=== PATIENT | female | born 1965 | race Caucasian/White ===

== ENCOUNTER → 2016-07-29 | Outpatient (CLI) | payer MEDICARE, OTHER ==
--- NOTE | 2016-07-29 16:23 | RADIOLOGY REPORT (SQ) ---
EXAM DESCRIPTION: CT FACIAL AREA WITHOUT COMPLETED DATE/TIME: 07/29/2016 2:44 pm REASON FOR STUDY: CONTUSION OF RIGHT EYELID S00.11XA CONTUSION OF RIGHT EYELID AND PERIOCULAR AREA, INIT COMPARISON: None. TECHNIQUE: Noncontrasted images through the facial bones and orbits windowed for bone and soft tissu e. Additional coronal and sagittal reconstructed images reviewed. All images stored on PACS. All CT scanners at this facility use dose modulation, iterative reconstruction, and/or weight based d osing when appropriate to reduce radiation dose to as low as reasonably achievable (ALARA). [facility]: Dose Right [facility]: CareDose [facility]: Dose Right [facility]: Teradose 4D [facility]: [employer] RADIATION DOSE: 45.28 mGy. LIMITATIONS: None. FINDINGS: FACIAL BONES: No fracture or bone lesion. ORBITS: Intact. No fracture. Symmetric intact globes and retroorbital soft tissues. Punctate calci fication along the left globe retinal surface axial image 49 of uncertain clinical significance. PARANASAL SINUSES: Clear. No significant mucosal thickening, mass or fluid. No nasal polyps. Maxill ric sinus outlets are patent. SOFT TISSUES: No mass or edema. INFERIOR BRAIN: Limited view. No acute findings. OTHER: Borderline enlarged right jugulodigastric lymph node axial image 14 of doubtful clinical signi ficance. IMPRESSION: NO ACUTE FINDINGS. TECHNICAL DOCUMENTATION: JOB ID: [id number] Quality ID # [id number]: Final reports with documentation of one or more dose reduction techniques (e.g., Au tomated exposure control, adjustment of the mA and/or kV according to patient size, use of iterative reconstruction technique) 2010 [employer]- All Rights Reserved
== END ==
LOC: RAD 14:26
PROVIDERS: ATTEND Physician Assistant
DX: S00.11XA Contusion of right eyelid and periocular area, initial encounter (principal); X58.XXXA Exposure to other specified factors, initial encounter
CPT/HCPCS: 70486

== ENCOUNTER 2016-12-07 19:28 | Inpatient (IN) | payer MEDICARE, OTHER ==
--- NOTE | 2016-12-07 19:57 | ER Document Report ---
ED Medical Screen (RME) - General Chief Complaint: Abdominal Cramping Stated Complaint: POSSIBLE BLOOD IN URINE Time Seen by Provider: 12/07/16 19:56 Notes: Patient presents with flank pain as well as suprapubic and lower pelvic pain. She states this pain is been going on for several weeks now she is starting to notice blood in her urine. She states her urine also has a foul odor. TRAVEL OUTSIDE OF THE [place] IN LAST 30 DAYS: No - Related Data Allergies/Adverse Reactions: fexofenadine HCl [From [facility]] Allergy (Verified 12/07/16 19:32) Past Medical History - Past Medical History Cardiac Medical History: Reports: Hx Hypercholesterolemia Renal/ Medical History: Reports: Hx Kidney Stones. Denies: Hx Peritoneal Dialysis - Immunizations Immunizations up to date: Yes Hx Diphtheria, Pertussis, Tetanus Vaccination: Yes Physical Exam - Vital signs Vitals: Temp Pulse Resp BP Pulse Ox 98.9 F 98 18 144/88 H 96 12/07/16 19:34 12/07/16 19:34 12/07/16 19:34 12/07/16 19:34 12/07/16 19:34 Course - Vital Signs Vital signs: Temp Pulse Resp BP Pulse Ox 98.9 F 98 18 144/88 H 96 12/07/16 19:34 12/07/16 19:34 12/07/16 19:34 12/07/16 19:34 12/07/16 19:34 - Laboratory Laboratory results interpreted by me: 12/07/16 19:37 POC Glucose 185 H
[2016-12-07 20:45] LABS: ABSOLUTE BASOPHILS # (AUTO) 0.1 10^3/uL (0.0-0.2); ABSOLUTE EOSINOPHILS # (AUTO) 0.1 10^3/uL (0.0-0.6); ABSOLUTE LYMPHOCYTES (AUTO) 3.2 10^3/uL (0.5-4.7); ABSOLUTE MONOCYTES (AUTO) 0.7 10^3/uL (0.1-1.4); ABSOLUTE NEUT (AUTO) 6.8 10^3/uL (1.7-8.2); BASOPHILS % (AUTO) 0.5 % (0-2); EOSINOPHILS % (AUTO) 1.3 % (0-6); HEMATOCRIT 42.4 % (36.0-47.0); HEMOGLOBIN 14.4 g/dL (12.0-15.5); HGB HCT DIFFERENCE 0.8; LYMPHOCYTES % (AUTO) 29.2 % (13-45); MEAN CORPUSCULAR VOLUME 85 fl (80-97); MONOCYTES % (AUTO) 6.4 % (3-13); RED BLOOD COUNT 4.96 10^6/uL (3.72-5.28); RED CELL DISTRIBUTION WIDTH 13.4 % (11.5-14.0); SEGMENTED NEUTROPHILS % (AUTO) 62.6 % (42-78); WHITE BLOOD COUNT 10.9 10^3/uL (4.0-10.5)
[2016-12-07 20:51] LABS: AMORPHOUS SEDIMENT,URINE TRACE /HPF; APPEARANCE,URINE TURBID; BILIRUBIN,URINE NEGATIVE (NEGATIVE); GLUCOSE, URINE 50 mg/dL (NEGATIVE); KETONES,URINE NEGATIVE (NEGATIVE); LEUKOCYTE ESTERASE,URINE NEGATIVE (NEGATIVE); NITRITE,URINE NEGATIVE (NEGATIVE); PROTEIN,URINE >=500 mg/dL (NEGATIVE); URINE SPECIFIC GRAVITY 1.031; UROBILINOGEN,URINE NEGATIVE mg/dL (<2.0)
[2016-12-07 20:59] LABS: ALANINE AMINOTRANSFERASE 41 U/L (9-52); ALBUMIN 4.2 g/dL (3.5-5.0); ALKALINE PHOSPHATASE 90 U/L (38-126); ANION GAP 13 (5-19); ASPARTATE AMINO TRANSFERASE 29 U/L (14-36); BILIRUBIN,DIRECT 0.4 mg/dL (0.0-0.4); BILIRUBIN,TOTAL 0.4 mg/dL (0.2-1.3); BLOOD UREA NITROGEN 21 mg/dL (7-20); CALCIUM 9.8 mg/dL (8.4-10.2); CARBON DIOXIDE 24 mmol/L (22-30); CHLORIDE 106 mmol/L (98-107); CREATININE RESULT 1.08 mg/dL (0.52-1.25); GLUCOSE 223 mg/dL (75-110); POTASSIUM 3.9 mmol/L (3.6-5.0); SODIUM 143.2 mmol/L (137-145)
--- NOTE | 2016-12-07 21:25 | RADIOLOGY REPORT (SQ) ---
EXAM DESCRIPTION: CT ABD/PELVIS NO ORAL OR IV COMPLETED DATE/TIME: 12/07/2016 8:33 pm REASON FOR STUDY: flank pain/hx stones COMPARISON: None. TECHNIQUE: CT scan of the abdomen and pelvis performed without intravenous or oral contrast. Images reviewed with lung, soft tissue, and bone windows. Reconstructed coronal and sagittal MPR images revi ewed. All images stored on PACS. All CT scanners at this facility use dose modulation, iterative reconstruction, and/or weight based d osing when appropriate to reduce radiation dose to as low as reasonably achievable (ALARA). [facility]: Dose Right [facility]: CareDose [facility]: Dose Right [facility]: Teradose 4D [facility]: Smart [employer] RADIATION DOSE: Up-to-date CT equipment and radiation dose reduction techniques were employed. CTDIv ol: 26.0 mGy. DLP: 1426 mGy-cm.mGy. LIMITATIONS: None. FINDINGS: LOWER CHEST: No significant findings. No nodules or infiltrates. NON-CONTRASTED LIVER, SPLEEN, ADRENALS: Evaluation limited by lack of IV contrast. Diffuse fatty inf iltration of the liver. No identified significant masses. PANCREAS: No masses. No peripancreatic inflammatory changes. GALLBLADDER: No identified stones by CT criteria. No inflammatory changes to suggest cholecystitis. RIGHT KIDNEY AND URETER: No suspicious masses. Assessment limited by lack of IV contrast. 7 mm calc ified stone in the distal right ureter with mild -moderate hydronephrosis-hydroureter. LEFT KIDNEY AND URETER: No suspicious masses. Assessment limited by lack of IV contrast. No signifi cant calcifications. No hydronephrosis or hydroureter. AORTA AND RETROPERITONEUM: No aneurysm. No retroperitoneal masses or adenopathy. BOWEL AND PERITONEAL CAVITY: No obvious masses or inflammatory changes. No free fluid. APPENDIX: Normal. PELVIS, BLADDER, AND ABDOMINAL WALL:No abnormal masses. No free fluid. Bladder normal. BONES: No significant findings. OTHER: No other significant finding. IMPRESSION: 7 mm calcified stone in the distal right ureter with mild -moderate hydronephrosis-hydro ureter. COMMENT: Quality ID # [id number]: Final reports with documentation of one or more dose reduction techniques (e.g., Automated exposure control, adjustment of the mA and/or kV according to patient size, use of iterative reconstruction technique) TECHNICAL DOCUMENTATION: JOB ID: [id number]- All Rights Reserved
[2016-12-07] MEDS ORDERED: NORMAL SALINE 1000 ML 1,000 ML IV ONE (22:25)
[2016-12-07] MEDS ORDERED: CEFTRIAXONE INJ 1000 MG VIAL IV ONE (22:25)
[2016-12-07] MEDS ORDERED: ONDANSETRON HCL INJ/PF 4 MG/2 ML SDV IV ONE (22:36)
[2016-12-07] MEDS ORDERED: MORPHINE SULFATE 10 MG/ML INJ IV ONE (22:36)
--- NOTE | 2016-12-07 22:44 | ER Document Report ---
ED General - General Chief Complaint: Abdominal Cramping Stated Complaint: POSSIBLE BLOOD IN URINE Time Seen by Provider: 12/07/16 19:56 Notes: Patient is a 51-year-old female with a previous history of kidney stones presents with complaint of a lot of pain in her right flank that goes across her lower abdomen as well as some vomiting. Patient said the symptoms started today. She says several days ago she noticed some dark urine and foul-smelling urine. She went to her doctor told her that she has some blood in her urine and that they would retest it later. She also has some sugar in her urine as well. She has no history of diabetes. She has passed her previous stones. She has never had see a urologist. She had some subjective fever at home. No other complaints at this time. TRAVEL OUTSIDE OF THE [place] IN LAST 30 DAYS: No - Related Data Allergies/Adverse Reactions: fexofenadine HCl [From [employer]] Allergy (Verified 12/07/16 19:32) Past Medical History - Social History Smoking Status: Former Smoker Frequency of alcohol use: None Drug Abuse: None Family History: None Patient has suicidal ideation: No Patient has homicidal ideation: No - Past Medical History Cardiac Medical History: Reports: Hx Hypercholesterolemia Renal/ Medical History: Reports: Hx Kidney Stones. Denies: Hx Peritoneal Dialysis - Immunizations Immunizations up to date: Yes Hx Diphtheria, Pertussis, Tetanus Vaccination: Yes Review of Systems - Review of Systems Notes: My Normal Review Basic REVIEW OF SYSTEMS: CONSTITUTIONAL : Denies fever, chills, or sweats. Denies recent illness. EENT: Denies eye, ear, throat, or mouth pain or symptoms. Denies nasal or sinus congestion. CARDIOVASCULAR: Denies chest pain. RESPIRATORY: Denies cough, cold, or chest congestion. Denies shortness of breath, difficulty breathing, or wheezing. GASTROINTESTINAL: Flank pain. Lower abdominal pain. Some vomiting. GENITOURINARY: Foul-smelling urine. Blood in urine. FEMALE GENITOURINARY: Denies vaginal bleeding, abnormal or irregular periods. MUSCULOSKELETAL: Denies neck or back pain or joint pain or swelling. SKIN: Denies rash or skin lesions. NEUROLOGICAL: Denies altered mental status or loss of consciousness. Denies headache. Denies weakness or paralysis or loss of use of either side. Denies problems with gait or speech. Denies sensory or motor loss. ALL OTHER SYSTEMS REVIEWED AND NEGATIVE. Physical Exam - Vital signs Vitals: Temp Pulse Resp BP Pulse Ox 98.9 F 98 18 144/88 H 96 12/07/16 19:34 12/07/16 19:34 12/07/16 19:34 12/07/16 19:34 12/07/16 19:34 - Notes Notes: General Appearance: Well nourished, alert, cooperative, no acute distress, alert obvious discomfort. Vitals: reviewed, See vital signs table. Head: no swelling or tenderness to the head Eyes: PERRL, EOMI, Conjuctiva clear Mouth: No decreasd moisture Lungs: No wheezing, No rales, No rhonci, No accessory muscle use, good air exchange bilaterally. Heart: Normal rate, Regular rythm, No murmur, no rub Abdomen: Normal BS, soft, No rigidity, lower abdominal tenderness palpation, No guarding, no rebound, no abdominal masses, no organomegaly Extremities: strength 5/5 in all extremities, good pulses in all extremities, no swelling or tenderness in the extremities, no edema. Skin: warm, dry, appropriate color, no rash Neuro: speech clear, oriented x 3, normal affect, responds appropriately to questions. Course - Re-evaluation Re-evalutation: 12/07/16 22:[address] Jaramillo, urologist on-call, who says that he wants to keep the patient n.p.o. and agrees with the Rocephin and urine culture. He says he will see the patient in the morning and most likely consider stenting the patient. I did speak with the hospitalist, Dr. Macias, who agrees to admit the patient. Patient is agreeable to plan. Dictation of this chart was performed using voice recognition software; therefore, there may be some unintended grammatical errors. - Vital Signs Vital signs: Temp Pulse Resp BP Pulse Ox 98.9 F 98 18 144/88 H 96 12/07/16 19:34 12/07/16 19:34 12/07/16 19:34 12/07/16 19:34 12/07/16 19:34 - Laboratory Result Diagrams: 12/07/16 19:55 12/07/16 19:55 Laboratory results interpreted by me: 12/07/16 12/07/16 12/07/16 19:37 19:55 19:55 WBC 10.9 H BUN 21 H Est GFR (Non-Af Amer) 54 L Glucose 223 H POC Glucose 185 H Urine Protein Urine Glucose (UA) Urine Blood 12/07/16 19:55 WBC BUN Est GFR (Non-Af Amer) Glucose POC Glucose Urine Protein >=500 H Urine Glucose (UA) 50 H Urine Blood LARGE H Discharge - Discharge Clinical Impression: Kidney stone on right side UTI (urinary tract infection) Qualifiers: Urinary tract infection type: site unspecified Hematuria presence: with hematuria Qualified Code(s): N39.0 - Urinary tract infection, site not specified Condition: Stable Disposition: ADMITTED INPATIENT Admitting Provider: Hospitalist Unit Admitted: Telemetry
[2016-12-07] MEDS ORDERED: HYDROCODONE/ACETAMINOPHEN 5-325 MG TABLET PO PRN (23:10)
[2016-12-07] MEDS ORDERED: ONDANSETRON HCL INJ/PF 4 MG/2 ML SDV IV PRN (23:11)
[2016-12-07] MEDS ORDERED: IPRATROPIUM/ALBUTEROL 0.5-2.5 MG/3 ML AMPUL NEB PRN (23:11)
[2016-12-07] MEDS ORDERED: NORMAL SALINE 1000 ML 1,000 ML IV SCH (23:15)
[2016-12-07] MEDS ORDERED: METHOCARBAMOL 750 MG TABLET PO ONE ×2 (23:30→23:45)
[2016-12-08] MEDS ORDERED: DEXTROSE 50%-WATER 25 GM/50 ML DISP.SYRIN IV PRN ×2 (00:14)
[2016-12-08] MEDS ORDERED: GLUCAGON,HUMAN RECOMB 1 MG INJ IM PRN (00:14)
[2016-12-08] MEDS ORDERED: INSULIN REG, HUMAN 100 UNIT/ML 3 ML VIAL (PYX) SUBCUT PRN (00:14)
[2016-12-08] MEDS ORDERED: DEXTROSE 40% GEL 15 GM TUBE PO PRN ×2 (00:14)
[2016-12-08] MEDS ORDERED: METHOCARBAMOL 750 MG TABLET PO ONE (01:30)
[2016-12-08] MEDS ORDERED: INFLUENZA ADLT QUAD (36MOS+) 2017-18 VAC 0.5 ML SYR IM PRN (04:22)
[2016-12-08] MEDS ORDERED: METHOCARBAMOL 750 MG TABLET ONE (05:20)
[2016-12-08] MEDS: HEPARIN SOD (PORCINE) 5,000 UNIT/ML 1 ML SYRINGE SUBCUT SCH ×3 (05:23→21:15)
[2016-12-08] MEDS ORDERED: KETOROLAC TROMETHAMINE INJ/PF 30 MG/1 ML SDV IV PRN (05:26)
[2016-12-08] MEDS: METHOCARBAMOL 750 MG TABLET PO SCH ×3 (05:36→21:19)
[2016-12-08 09:05] LABS: HEMATOCRIT 37.3 % (36.0-47.0); HEMOGLOBIN 12.5 g/dL (12.0-15.5); HGB HCT DIFFERENCE 0.2; MEAN CORPUSCULAR HEMOGLOBIN 28.5 pg (27.0-33.4); MEAN CORPUSCULAR HGB CONC 33.4 g/dL (32.0-36.0); MEAN CORPUSCULAR VOLUME 85 fl (80-97); RED BLOOD COUNT 4.37 10^6/uL (3.72-5.28); RED CELL DISTRIBUTION WIDTH 13.1 % (11.5-14.0); WHITE BLOOD COUNT 6.7 10^3/uL (4.0-10.5)
[2016-12-08 09:24] LABS: ANION GAP 12 (5-19); BLOOD UREA NITROGEN 16 mg/dL (7-20); CALCIUM 8.5 mg/dL (8.4-10.2); CARBON DIOXIDE 22 mmol/L (22-30); CHLORIDE 110 mmol/L (98-107); CREATININE RESULT 0.75 mg/dL (0.52-1.25); GLUCOSE 147 mg/dL (75-110); POTASSIUM 4.3 mmol/L (3.6-5.0); SODIUM 143.5 mmol/L (137-145)
[2016-12-08] MEDS: CEFTRIAXONE 1 GM/D5W RTU 1 GM/50 ML RTUPB IV SCH (09:40)
[2016-12-08] MEDS: DOCUSATE SODIUM 100 MG CAPSULE PO SCH ×2 (09:44→15:07)
[2016-12-08] MEDS ORDERED: FENTANYL CITRATE INJ/PF 100 MCG/2 ML AMPUL ONE (11:54)
[2016-12-08] MEDS ORDERED: PROPOFOL INJ 200 MG/20 ML VIAL IV ONE (11:55)
[2016-12-08] MEDS ORDERED: MIDAZOLAM 2 MG/2 ML INJ ONE (11:55)
[2016-12-08] MEDS ORDERED: ONDANSETRON HCL INJ/PF 4 MG/2 ML SDV ONE (11:55)
[2016-12-08] MEDS ORDERED: DEXAMETHASONE SOD PHOSPHATE INJ 4 MG/1 ML VIAL ONE (11:55)
[2016-12-08] MEDS ORDERED: MEPERIDINE HCL/PF INJ 25 MG/1 ML DISP.SYRIN IV PRN (12:55)
[2016-12-08] MEDS ORDERED: PROMETHAZINE HCL INJ 25 MG/1 ML VIAL IV PRN (12:55)
[2016-12-08] MEDS ORDERED: DIPHENHYDRAMINE HCL 50 MG/ML VIAL IV PRN (12:55)
[2016-12-08] MEDS ORDERED: FENTANYL CITRATE INJ/PF 100 MCG/2 ML AMPUL IV PRN ×3 (12:55)
[2016-12-08] MEDS ORDERED: ONDANSETRON HCL INJ/PF 4 MG/2 ML SDV IV PRN (12:55)
--- NOTE | 2016-12-08 13:11 | Operative Report ---
Operative Report DATE OF SURGERY: 12/08/16 PREOPERATIVE DIAGNOSIS: 1. Distal right ureteral stone with obstruction. 2. Urinary tract infection POSTOPERATIVE DIAGNOSIS: Same OPERATION: Cystoscopy, placement of right ureteral stent SURGEON: LIO SAAVEDRA II ANESTHESIA: LMAC TISSUE REMOVED OR ALTERED: None ESTIMATED BLOOD LOSS: minimal INTRAOPERATIVE FINDINGS: Distal right ureteral stone PROCEDURE: The patient was taken to the cystoscopy suite and placed into the supine position on the cystoscopy table. She was then prepped and draped in the usual sterile fashion and placed into the lithotomy position. The 23 [place] panendoscope sheath was then placed into the bladder under direct vision utilizing the 30 Foroblique lens. The right ureteral orifice was visualized. A 0.035 Glidewire was used to cannulate the right ureteral orifice and under fluoroscopic guidance the Glidewire was placed into the renal pelvis bypassing the distal stone. Utilizing the exchange technique, a 4.8 24 cm double-pigtail stent was placed and positioned under fluoroscopic guidance. The bladder was drained and the cystoscope removed. The patient tolerated the procedure well. She was returned to PACU in satisfactory condition.
[2016-12-08] MEDS ORDERED: NORMAL SALINE 1000 ML 1,000 ML IV PRN (13:29)
--- NOTE | 2016-12-08 14:01 | RADIOLOGY REPORT (SQ) ---
EXAM DESCRIPTION: NO CHG FLUORO; KUB/ABDOMEN (SINGLE VIEW) COMPLETED DATE/TIME: 12/08/2016 1:11 pm REASON FOR STUDY: RIGHT SIDED STENT PLACEMENT ASSISTED W/FLUORO IN OR COMPARISON: CT from yesterday. FLUOROSCOPY TIME: 1 minutes 2 images saved to PACS. TECHNIQUE: Intra-operative images acquired during surgical procedure to evaluate progress. NUMBER OF IMAGES: 2 LIMITATIONS: None. FINDINGS: Images reveal instrumentation of the right ureter. Retrograde wire advanced into the john on of the right renal pelvis. Please correlate with operative note. IMPRESSION: IMAGE(S) OBTAINED DURING PROCEDURE. COMMENT: Quality ID [id number]: Final reports for procedures using fluoroscopy that document radiation exp osure indices, or exposure time and number of fluorographic images (if radiation exposure indices are not available) Please consult full operative report of the attending physician for description of the procedure. TECHNICAL DOCUMENTATION: JOB ID: [id number] [employer]- All Rights Reserved
--- NOTE | 2016-12-08 14:36 | PDOC PROGRESS REPORT ---
Subjective Progress Note for:: 12/08/16 Subjective:: Reports right flank pain. Physical Exam Vital Signs: Temp Pulse Resp BP Pulse Ox 98.0 F 73 16 122/65 96 12/08/16 13:25 12/08/16 13:25 12/08/16 13:25 12/08/16 13:25 12/08/16 13:25 Intake & Output 12/07/16 12/08/16 12/09/16 06:59 06:59 06:59 Intake Total 770 1000 Output Total 524 Balance 770 476 Weight 105.2 kg General appearance: PRESENT: no acute distress Eye exam: PRESENT: conjunctiva pink. ABSENT: scleral icterus Mouth exam: PRESENT: moist, tongue midline Neck exam: ABSENT: JVD Respiratory exam: PRESENT: clear to auscultation [place]. ABSENT: rales, rhonchi, wheezes Cardiovascular exam: PRESENT: RRR. ABSENT: diastolic murmur, rubs, systolic murmur GI/Abdominal exam: PRESENT: normal bowel sounds, soft. ABSENT: distended, guarding, mass, organolmegaly, rebound, tenderness Extremities exam: ABSENT: calf tenderness, clubbing, pedal edema Neurological exam: PRESENT: alert, awake, oriented to person, oriented to place , oriented to time, oriented to situation, CN II-XII grossly intact. ABSENT: motor sensory deficit Psychiatric exam: PRESENT: appropriate affect Skin exam: PRESENT: dry, intact, warm. ABSENT: cyanosis, rash Results Laboratory Results: 12/08/16 08:05 12/08/16 08:05 12/08/16 12/08/16 08:05 08:05 WBC 6.7 RBC 4.37 Hgb 12.5 Hct 37.3 MCV 85 MCH 28.5 MCHC 33.4 RDW 13.1 Plt Count 194 Sodium 143.5 Potassium 4.3 Chloride 110 H Carbon Dioxide 22 Anion Gap 12 BUN 16 Creatinine 0.75 Est GFR ( Amer) > 60 Est GFR (Non-Af Amer) > 60 Glucose 147 H Calcium 8.5 Impressions: Abdomen/Pelvis CT 12/07/16 19:56 IMPRESSION: 7 mm calcified stone in the distal right ureter with mild - moderate hydronephrosis-hydroureter. Fluoroscopy 12/08/16 00:00 IMPRESSION: IMAGE(S) OBTAINED DURING PROCEDURE. KUB X-Ray 12/08/16 00:00 IMPRESSION: IMAGE(S) OBTAINED DURING PROCEDURE. Assessment & Plan - Diagnosis (1) Kidney stone on right side Is this a current diagnosis for this admission?: Yes Plan: Patient has been evaluated by urology and will have a stent placed. (2) Pyelonephritis Is this a current diagnosis for this admission?: Yes Plan: Most likely is related to the nephrolithiasis. Continue with Rocephin. (3) Diabetes mellitus Is this a current diagnosis for this admission?: Yes Plan: This is a new diagnosis. Will cover with sliding scale insulin. (4) Morbid obesity Is this a current diagnosis for this admission?: Yes - Time Time Spent with patient: 25-34 minutes - Inpatient Certification Medical Necessity: Need For IV Fluids, Need for IV Antibiotics
[2016-12-08] MEDS ORDERED: PHENAZOPYRIDINE HCL 200 MG TABLET PO PRN (18:50)
[2016-12-09] MEDS: HEPARIN SOD (PORCINE) 5,000 UNIT/ML 1 ML SYRINGE SUBCUT SCH (05:30)
[2016-12-09] MEDS: METHOCARBAMOL 750 MG TABLET PO SCH (05:31)
[2016-12-09 06:33] LABS: ANION GAP 11 (5-19); BLOOD UREA NITROGEN 14 mg/dL (7-20); CALCIUM 8.6 mg/dL (8.4-10.2); CARBON DIOXIDE 22 mmol/L (22-30); CHLORIDE 111 mmol/L (98-107); CREATININE RESULT 0.72 mg/dL (0.52-1.25); GLUCOSE 175 mg/dL (75-110); POTASSIUM 4.5 mmol/L (3.6-5.0)
[2016-12-09 06:59] LABS: ABSOLUTE LYMPHOCYTES (AUTO) 2.4 10^3/uL (0.5-4.7); ABSOLUTE MONOCYTES (AUTO) 0.7 10^3/uL (0.1-1.4); ABSOLUTE NEUT (AUTO) 7.4 10^3/uL (1.7-8.2); BASOPHILS % (AUTO) 0.3 % (0-2); EOSINOPHILS % (AUTO) 0.1 % (0-6); HEMATOCRIT 35.7 % (36.0-47.0); HEMOGLOBIN 12.2 g/dL (12.0-15.5); HGB HCT DIFFERENCE 0.9; LYMPHOCYTES % (AUTO) 22.5 % (13-45); MEAN CORPUSCULAR HEMOGLOBIN 29.1 pg (27.0-33.4); MEAN CORPUSCULAR HGB CONC 34.4 g/dL (32.0-36.0); MEAN CORPUSCULAR VOLUME 85 fl (80-97); MONOCYTES % (AUTO) 6.3 % (3-13); SEGMENTED NEUTROPHILS % (AUTO) 70.8 % (42-78); WHITE BLOOD COUNT 10.5 10^3/uL (4.0-10.5)
[2016-12-09 08:39] VITALS: BP 120/67
[2016-12-09] MEDS: CEFTRIAXONE 1 GM/D5W RTU 1 GM/50 ML RTUPB IV SCH (10:12)
[2016-12-09] MEDS: DOCUSATE SODIUM 100 MG CAPSULE PO SCH (10:12)
--- NOTE | 2016-12-09 13:34 | PDOC DISCHARGE SUMMARY ---
General - Admit/Disc Date/PCP Admission Date/Primary Care Provider: 12/07/16 23:11 NOELLE URBINA PA-C Discharge Date: 12/09/16 - Discharge Diagnosis (1) Kidney stone on right side Is this a current diagnosis for this admission?: Yes Summary: Evaluated by urology who placed a right ureteral stent. (2) Pyelonephritis Is this a current diagnosis for this admission?: Yes Summary: Cultures have been negative. She has been put on Rocephin and will be sent home with Ceftin. (3) Diabetes mellitus Is this a current diagnosis for this admission?: Yes Summary: This is a new diagnosis. Patient is instructed to monitor her diet and exercise. (4) Morbid obesity Is this a current diagnosis for this admission?: Yes - Additional Information Resuscitation Status: Full Code Discharge Diet: Regular Discharge Activity: Activity As Tolerated Home Medications: Atorvastatin Calcium [Lipitor 10 mg Tablet] 10 mg PO QHS 12/08/16 Ergocalciferol (Vitamin D2) [Vitamin D2] 50,000 unit PO MO@1000 12/08/16 Fenofibrate Nanocrystallized [Fenofibrate] 48 mg PO DAILY 12/08/16 Gabapentin [Neurontin 300 mg Capsule] 300 mg PO Q12 12/08/16 Hydrochlorothiazide [Hydrodiuril 12.5 mg Capsule] 12.5 mg PO DAILY 12/08/16 Loratadine [Claritin 10 mg Tablet] 10 mg PO DAILY 12/08/16 Meloxicam [Mobic] 15 mg PO DAILYP PRN 12/08/16 Montelukast Sodium [Singulair 10 mg Tablet] 10 mg PO DAILY 12/08/16 Sertraline HCl [Zoloft] 25 mg PO DAILY 12/08/16 Cefuroxime Axetil [Ceftin 500 mg Tablet] 1 tab PO BID #14 tablet 12/09/16 Flu Vacc [id number] [id number] Up/Pf [Fluzone Adlt Quad [id number] Vac 0.5 ml Syr] 0.5 ml IM .AT DISCHARGE PRN disp.syrin 12/09/16 Hydrocodone/Acetaminophen [Elton 5-325 mg Tablet] 1 tab PO Q6HP PRN #10 tablet 12/09/16 History of Present Illness History of Present Illness: CAPRICE KEMP is a 51 year old female with history kidney stones who presented with a one-day history of right flank pain radiating to the right lower abdomen along with some foul-smelling urine and hematuria. Patient however denied any fevers or chills. She was found to have a right-sided ureteral stone. She is admitted for treatment of pyelonephritis and right- sided nephrolithiasis. Patient also was noted to have elevated blood sugars consistent with diabetes which is new onset for her. Hospital Course Hospital Course: 51-year-old female who has a history kidney stones presented with a one-day history of right flank pain. Patient was found to have a 7 mm kidney stone on the right. Patient was started empirically on Rocephin for presumed pyelonephritis in addition to the kidney stone. The patient had improvement in her pain but continued to have hematuria. The patient was evaluated by urology who placed a right ureteral stent without difficulty. Patient had no further hematuria or fever. The patient was put on Rocephin initially but will be sent home on a course of Ceftin. All cultures again have been negative so far. The patient also was noted to have blood sugars that were elevated and she has been instructed to watch her diet as she appears to have early diabetes. Patient was not started any treatment will have her follow-up with her primary care to discuss further treatment of her diabetes. Physical Exam Vital Signs: Temp Pulse Resp BP Pulse Ox 98.2 F 75 18 120/67 100 12/09/16 11:35 12/09/16 11:35 12/09/16 11:35 12/09/16 11:35 12/09/16 11:35 Intake & Output 12/08/16 12/09/16 12/10/16 06:59 06:59 06:59 Intake Total 770 3880 Output Total 524 Balance 770 3356 Weight 105.2 kg 105.2 kg General appearance: PRESENT: no acute distress Eye exam: PRESENT: conjunctiva pink. ABSENT: scleral icterus Mouth exam: PRESENT: moist, tongue midline Neck exam: ABSENT: JVD Respiratory exam: PRESENT: clear to auscultation [place]. ABSENT: rales, rhonchi, wheezes Cardiovascular exam: PRESENT: RRR. ABSENT: diastolic murmur, rubs, systolic murmur GI/Abdominal exam: PRESENT: normal bowel sounds, soft. ABSENT: distended, guarding, mass, organolmegaly, rebound, tenderness Extremities exam: ABSENT: calf tenderness, clubbing, pedal edema Neurological exam: PRESENT: alert, awake, oriented to person, oriented to place , oriented to time, oriented to situation, CN II-XII grossly intact. ABSENT: motor sensory deficit Psychiatric exam: PRESENT: appropriate affect Skin exam: PRESENT: dry, intact, warm. ABSENT: cyanosis, rash Results Laboratory Results: 12/09/16 05:17 12/09/16 05:17 12/09/16 12/09/16 05:17 05:17 WBC 10.5 RBC 4.20 Hgb 12.2 Hct 35.7 L MCV 85 MCH 29.1 MCHC 34.4 RDW 13.0 Plt Count 202 Seg Neutrophils % 70.8 Lymphocytes % 22.5 Monocytes % 6.3 Eosinophils % 0.1 Basophils % 0.3 Absolute Neutrophils 7.4 Absolute Lymphocytes 2.4 Absolute Monocytes 0.7 Absolute Eosinophils 0.0 Absolute Basophils 0.0 Sodium 144.0 Potassium 4.5 Chloride 111 H Carbon Dioxide 22 Anion Gap 11 BUN 14 Creatinine 0.72 Est GFR ( Amer) > 60 Est GFR (Non-Af Amer) > 60 Glucose 175 H Calcium 8.6 Impressions: Abdomen/Pelvis CT 12/07/16 19:56 IMPRESSION: 7 mm calcified stone in the distal right ureter with mild - moderate hydronephrosis-hydroureter. Fluoroscopy 12/08/16 00:00 IMPRESSION: IMAGE(S) OBTAINED DURING PROCEDURE. KUB X-Ray 12/08/16 00:00 IMPRESSION: IMAGE(S) OBTAINED DURING PROCEDURE. Qualifiers PATEINT BEING DISCHARGED WITH ANY OF THE FOLLOWING DIAGNOSIS?: No Plan Discharge Plan: Patient is discharged home. She will follow-up with her primary care doctor in 1-2 weeks and with urology in 1 week. Patient needs to discuss with her primary care doctor about further evaluation of her new onset diabetes. Time Spent: Less than 30 Minutes
--- NOTE | 2016-12-14 05:16 | PDOC H&P ---
History of Present Illness Admission Date/PCP: 12/07/16 23:11 NOELLE URBINA PA-C Patient complains of: Right sided flank pain History of Present Illness: CAPRICE KEMP is a 51 year old female with past medical history of psoriasis , nephrolithiasis and morbid obesity who would been her usual state of health until approximately 6 hours prior to presentation developing the abrupt onset of right-sided flank pain radiated to the groin and bloody urine. She admits remote previous occurrence, denies passing a stone, fever chills nausea or vomiting. Denies recent use of Humira, change in medications and is not on antibiotics. In the emergency room she is found to have a 7 mm stone obstructing the right distal ureter with moderate hydronephrosis and is started on empiric antibiotics and referred to the hospitalist for admission. Dr. Jaramillo urologist is consulted and agrees to see the patient. Past Medical History Cardiac Medical History: Reports: Hyperlipidema Social History Information Source: Patient Smoking Status: Former Smoker Frequency of Alcohol Use: Rare Drugs: None - Advance Directive Resuscitation Status: Full Code Family History Family History: DM Parental Family History Reviewed: Yes Children Family History Reviewed: Yes Sibling(s) Family History Reviewed.: Yes Medication/Allergy Home Medications: Hydrocodone/Acetaminophen [Zahl 5-325 Tablet] 1 each PO PRN PRN 02/04/13 Methocarbamol [Robaxin 750 mg Tablet] 750 mg PO TID #30 tablet 02/04/13 Allergies/Adverse Reactions: azithromycin Allergy (Severe, Verified 12/08/16 04:11) fexofenadine HCl [From [facility]rav[facility]] Allergy (Severe, Verified 12/08/16 04:11) Review of Systems Constitutional: ABSENT: chills, fever(s), headache(s), weight gain, weight loss Eyes: ABSENT: visual disturbances Ears: ABSENT: hearing changes Cardiovascular: ABSENT: chest pain, dyspnea on exertion, edema, orthropnea, palpitations Respiratory: ABSENT: cough, hemoptysis Gastrointestinal: ABSENT: abdominal pain, constipation, diarrhea, hematemesis, hematochezia, nausea, vomiting Genitourinary: ABSENT: dysuria, hematuria Musculoskeletal: ABSENT: joint swelling Integumentary: ABSENT: rash, wounds Neurological: ABSENT: abnormal gait, abnormal speech, confusion, dizziness, focal weakness, syncope Psychiatric: ABSENT: anxiety, depression, homidical ideation, suicidal ideation Endocrine: PRESENT: polydipsia, polyphagia, polyuria. ABSENT: cold intolerance , heat intolerance Hematologic/Lymphatic: ABSENT: easy bleeding, easy bruising Physical Exam Vital Signs: Temp Pulse Resp BP Pulse Ox 98.0 F 76 17 140/82 H 100 12/08/16 03:00 12/08/16 03:43 12/08/16 03:00 12/08/16 03:00 12/08/16 03:00 Intake & Output 12/06/16 12/07/16 12/08/16 11:59 11:59 11:59 Intake Total 650 Balance 650 General appearance: PRESENT: no acute distress, well-developed, well-nourished Head exam: PRESENT: atraumatic, normocephalic Eye exam: PRESENT: conjunctiva pink, EOMI, PERRLA. ABSENT: scleral icterus Ear exam: PRESENT: normal external ear exam Mouth exam: PRESENT: moist, tongue midline Neck exam: ABSENT: carotid bruit, JVD, lymphadenopathy, thyromegaly Respiratory exam: PRESENT: clear to auscultation [place]. ABSENT: rales, rhonchi, wheezes Cardiovascular exam: PRESENT: RRR. ABSENT: diastolic murmur, rubs, systolic murmur Pulses: PRESENT: normal dorsalis pedis pul Vascular exam: PRESENT: normal capillary refill GI/Abdominal exam: PRESENT: normal bowel sounds, soft. ABSENT: distended, guarding, mass, organolmegaly, rebound, tenderness Rectal exam: PRESENT: deferred Extremities exam: PRESENT: full ROM. ABSENT: calf tenderness, clubbing, pedal edema Neurological exam: PRESENT: alert, awake, oriented to person, oriented to place , oriented to time, oriented to situation, CN II-XII grossly intact. ABSENT: motor sensory deficit Psychiatric exam: PRESENT: appropriate affect, normal mood. ABSENT: homicidal ideation, suicidal ideation Skin exam: PRESENT: dry, intact, warm. ABSENT: cyanosis, rash Results Impressions: Abdomen/Pelvis CT 12/07/16 19:56 IMPRESSION: 7 mm calcified stone in the distal right ureter with mild - moderate hydronephrosis-hydroureter. Assessment & Plan - Diagnosis (1) Pyelonephritis Is this a current diagnosis for this admission?: Yes Plan: Empiric antibiotics, IV fluid challenge and symptomatic management follow-up CBC blood and urine culture (2) Kidney stone on right side Is this a current diagnosis for this admission?: Yes Plan: Urology consult for extraction and or nephrostomy tube (3) Diabetes mellitus Is this a current diagnosis for this admission?: Yes Plan: Strongly suggested by hyperglycemia will initiate insulin sliding scale and obtain A1c (4) Morbid obesity Is this a current diagnosis for this admission?: Yes Plan: Morbid obesity will evaluate for metabolic cause with evaluation of thyroid function and dietitian consultation
== END 2016-12-09 12:30 | disposition home or self-care (01) | DRG 690 ==
LOC: ER 19:28 → EH 23:11 → UNDOADMIN 23:14 → EH 23:31 → UNDOADMIN 23:31 → 5 12-08 03:40
PROVIDERS: ADMIT Internal Medicine; ATTEND Internal Medicine
PROC: 0T764DZ Dilation of Right Ureter with Intraluminal Device, Percutaneous Endoscopic Approach (ICD-10-PCS; principal; 2016-12-08 12:00)
DX: N13.6 Pyonephrosis (principal); Z68.42 Body mass index [BMI] 45.0-49.9, adult; E66.01 Morbid (severe) obesity due to excess calories; E11.9 Type 2 diabetes mellitus without complications; L40.9 Psoriasis, unspecified; E78.5 Hyperlipidemia, unspecified; Z83.3 Family history of diabetes mellitus; Z87.891 Personal history of nicotine dependence; Z88.1 Allergy status to other antibiotic agents; Z87.442 Personal history of urinary calculi
CPT/HCPCS: 36415; 74000; 74176; 80048; 80053; 81001; 82962; 83036; 85025; 85027; 87086; 90686; 910; 99285; J0696; J1100; J1885; J2250; J2270; J2405; J2704; J3010; J3490; J7030

== ENCOUNTER → 2018-07-13 | Outpatient (CLI) | payer MEDICARE, OTHER ==
--- NOTE | 2018-07-13 10:48 | WOMENS IMAGING REPORT ---
EXAM DESCRIPTION: BONE DENSITY HIP/SPINE COMPLETED DATE/TIME: 07/13/2018 10:37 am REASON FOR STUDY: Z12.31 ROUTINE BILATERAL SCREENING,Z78.0 AYSYMPTOMATIC MENOPAUSAL STATE Z78.0 ASY MPTOMATIC MENOPAUSAL STATE Z12.31 ENCNTR SCREEN MAMMOGRAM FOR MALIGNANT NEOPLASM OF PRISCILLA COMPARISON: None. TECHNIQUE: Dual-Energy X-ray Absorptiometry (DEXA) of the AP Spine and Hip. LIMITATIONS: None. FINDINGS: LUMBAR SPINE: The bone mineral density (BMD) measured from L1-L4 in the AP projection correlates with a T-score of 0.4, which is normal as defined by the World Health Organization. HIP: The bone mineral density (BMD) measured in the left hip correlates with a T-score of -0.3, which is n ormal as defined by the World Health Organization. IMPRESSION: 1. LUMBAR SPINE: NORMAL. 2. HIP: NORMAL. COMMENT: The World Health Organization defines low BMD as follows: T-score: Normal: Greater than -1.0 Osteopenia: Between -1.0 and -2.5 Osteoporosis: Less than -2.5 without fractures Established osteoporosis: Less than -2.5 with fractures In general, you may wish to consider: Diagnosis Treatment Follow-up DEXA Normal BMD Prevention 2-3 years Osteopenia Prevention/Therapy 1-2 years Osteoporosis Therapy Yearly TECHNICAL DOCUMENTATION: JOB ID: [id number]- All Rights Reserved Reading location - IP/workstation name: [email or web address]
--- NOTE | 2018-07-13 11:49 | WOMENS IMAGING REPORT ---
EXAM DESCRIPTION: 3D SCREENING MAMMO BILAT COMPLETED DATE/TIME: 07/13/2018 10:37 am REASON FOR STUDY: Z12.31 ROUTINE BILATERAL SCREENING,Z78.0 AYSYMPTOMATIC MENOPAUSAL STATE Z78.0 ASY MPTOMATIC MENOPAUSAL STATE Z12.31 ENCNTR SCREEN MAMMOGRAM FOR MALIGNANT NEOPLASM OF PRISCILLA COMPARISON: [id number] EXAM PARAMETERS: Views: Standard craniocaudal and mediolateral oblique views of each breast recorded using digital acquisition and breast tomosynthesis. Read with the assistance of CAD. .[facility] - R2 Assistant Quality Manager Version 9.2 LIMITATIONS: None. FINDINGS: No suspicious masses, suspicious calcifications or architectural distortion. No areas of c oncern. IMPRESSION: Assessment: Negative MAMMOGRAM. BIRADS 1. BREAST DENSITY: b. There are scattered areas of fibroglandular density. BIRAD: 1 NEGATIVE RECOMMENDATION: ROUTINE SCREENING COMMENT: The patient has been notified of the results by letter per MQSA requirements. Additional no tification policies are in place for contacting patient with suspicious or incomplete findings. Quality ID #[id number]: The [employer] recommends an annual screening mammogram for women aged 40 years or over. This facility utilizes a reminder system to ensure that all patients receive reminder letters, and/or direct phone calls for appointments. This includes reminders for routine scr eening mammograms, diagnostic mammograms, or other Breast Imaging Interventions when appropriate. Th is patient will be placed in the appropriate reminder system. TECHNICAL DOCUMENTATION: FINDING NUMBER: (1) ASSESSMENT: (1) JOB ID: [id number] [employer]- All Rights Reserved Reading location - IP/workstation name: [email or web address]
== END ==
LOC: WI 10:02
PROVIDERS: ATTEND Internal Medicine
DX: Z12.31 Encounter for screening mammogram for malignant neoplasm of breast (principal); Z78.0 Asymptomatic menopausal state
CPT/HCPCS: 77063; 77067; 77080

== ENCOUNTER → 2019-09-27 | Outpatient (CLI) | payer MEDICARE, OTHER ==
--- NOTE | 2019-09-27 10:42 | WOMENS IMAGING REPORT ---
EXAM DESCRIPTION: 3D SCREENING MAMMO BILAT IMAGES COMPLETED DATE/TIME: 09/27/2019 10:19 am REASON FOR STUDY: Z12.31 ENCNTR SCREEN MAMMOGRAM FOR MALIGNANT NEOPLASM OF BREAST Z12.31 ENCNTR SCR EEN MAMMOGRAM FOR MALIGNANT NEOPLASM OF PRISCILLA COMPARISON: 2012, 2018 EXAM PARAMETERS: Standard craniocaudal and mediolateral oblique views of each breast recorded using digital acquisition and breast tomosynthesis. Read with the assistance of CAD. .[facility] - R2 Customs Guard Version 9.2 LIMITATIONS: None. FINDINGS: RIGHT BREAST MASSES: No suspicious masses. CALCIFICATIONS: No new or suspicious calcifications. ARCHITECTURAL DISTORTION: None. ASYMMETRY: None noted. OTHER: No other significant findings. LEFT BREAST MASSES: No suspicious masses. CALCIFICATIONS: No new or suspicious calcifications. ARCHITECTURAL DISTORTION: None. ASYMMETRY: Focal asymmetry in the superior aspect 9.5 cm deep to the nipple not seen on the CC view. OTHER: No other significant findings. IMPRESSION: Focal asymmetry left breast. 0 Incomplete: Needs Additional Imaging Evaluation and/or prior Mammograms for Comparison. BREAST DENSITY: b. There are scattered areas of fibroglandular density. BIRAD: ASSESSMENT: 0 Incomplete: Needs Additional Imaging Evaluation and/or prior Mammograms for C omparison. RECOMMENDATION: RECOMMENDED FOLLOW-UP: Exaggerated CC, cone compression views and potential ultrasou nd left breast. The patient will be contacted for additional imaging. COMMENT: The patient has been notified of the results by letter per SA requirements. Additional no tification policies are in place for contacting patient with suspicious or incomplete findings. Quality ID #225: The [employer] recommends an annual screening mammogram for women aged 40 years or over. This facility utilizes a reminder system to ensure that all patients receive reminder letters, and/or direct phone calls for appointments. This includes reminders for routine scr eening mammograms, diagnostic mammograms, or other Breast Imaging Interventions when appropriate. Th is patient will be placed in the appropriate reminder system. TECHNICAL DOCUMENTATION: FINDING NUMBER: (1) ASSESSMENT: (1) JOB ID: [id number] 2010 [employer]- All Rights Reserved Reading location - IP/workstation name: [email or web address]
== END ==
LOC: WI 09:47
PROVIDERS: ATTEND Internal Medicine
DX: Z12.31 Encounter for screening mammogram for malignant neoplasm of breast (principal); N64.89 Other specified disorders of breast
CPT/HCPCS: 77063; 77067

== ENCOUNTER → 2019-10-11 | Outpatient (CLI) | payer MEDICARE, OTHER ==
--- NOTE | 2019-10-11 10:05 | WOMENS IMAGING REPORT ---
EXAM DESCRIPTION: LEFT DIAGNOSTIC MAMMO W/CAD; U/S BREAST UNILAT LIMITED IMAGES COMPLETED DATE/TIME: 10/11/2019 8:37 am; 10/11/2019 9:27 am REASON FOR STUDY: R92.2 INCONCLUSIVE MAMMOGRAM; R92.2 R92.2 INCONCLUSIVE MAMMOGRAM COMPARISON: 09/27/2019 EXAM PARAMETERS: TRUE LATERAL, EXAGGERATED CC AND CONE COMPRESSION VIEWS. LIMITATIONS: None. FINDINGS: BREAST LATERALITY: left MASSES: No suspicious masses. CALCIFICATIONS: No new or suspicious calcifications. ARCHITECTURAL DISTORTION: None. ASYMMETRY: Focal asymmetry partially compresses out. OTHER: No other significant findings. Ultrasound demonstrates fibrocystic change lateral breast. No suspicious findings. IMPRESSION: No evidence of malignancy. BREAST DENSITY: b. There are scattered areas of fibroglandular density. BIRAD: ASSESSMENT: 2 Benign findings. RECOMMENDATION: RECOMMENDED FOLLOW UP: Birads 1 or 2: The patient should resume routine screening . SPECIFIC INTERVENTION/IMAGING/CONSULTATION RECOMMENDED:No additional intervention/ imaging/consultati on needed at this time. COMMUNICATION:The imaging findings were not discussed with the patient. Her referring provider has be en notified of the findings. COMMENT: The patient has been notified of the results by letter per SA requirements. Additional no tification policies are in place for contacting patient with suspicious or incomplete findings. Quality ID #225: The [employer] recommends an annual screening mammogram for women aged 40 years or over. This facility utilizes a reminder system to ensure that all patients receive reminder letters, and/or direct phone calls for appointments. This includes reminders for routine scr eening mammograms, diagnostic mammograms, or other Breast Imaging Interventions when appropriate. Th is patient will be placed in the appropriate reminder system. TECHNICAL DOCUMENTATION: FINDING NUMBER: (1) ASSESSMENT: (1) JOB ID: [id number] 2010 [employer]- All Rights Reserved Reading location - IP/workstation name: [email or web address]
--- NOTE | 2019-10-11 10:05 | WOMENS IMAGING REPORT ---
EXAM DESCRIPTION: LEFT DIAGNOSTIC MAMMO W/CAD; U/S BREAST UNILAT LIMITED IMAGES COMPLETED DATE/TIME: 10/11/2019 8:37 am; 10/11/2019 9:27 am REASON FOR STUDY: R92.2 INCONCLUSIVE MAMMOGRAM; R92.2 R92.2 INCONCLUSIVE MAMMOGRAM COMPARISON: 09/27/2019 EXAM PARAMETERS: TRUE LATERAL, EXAGGERATED CC AND CONE COMPRESSION VIEWS. LIMITATIONS: None. FINDINGS: BREAST LATERALITY: left MASSES: No suspicious masses. CALCIFICATIONS: No new or suspicious calcifications. ARCHITECTURAL DISTORTION: None. ASYMMETRY: Focal asymmetry partially compresses out. OTHER: No other significant findings. Ultrasound demonstrates fibrocystic change lateral breast. No suspicious findings. IMPRESSION: No evidence of malignancy. BREAST DENSITY: b. There are scattered areas of fibroglandular density. BIRAD: ASSESSMENT: 2 Benign findings. RECOMMENDATION: RECOMMENDED FOLLOW UP: Birads 1 or 2: The patient should resume routine screening . SPECIFIC INTERVENTION/IMAGING/CONSULTATION RECOMMENDED:No additional intervention/ imaging/consultati on needed at this time. COMMUNICATION:The imaging findings were not discussed with the patient. Her referring provider has be en notified of the findings. COMMENT: The patient has been notified of the results by letter per SA requirements. Additional no tification policies are in place for contacting patient with suspicious or incomplete findings. Quality ID #225: The [employer] recommends an annual screening mammogram for women aged 40 years or over. This facility utilizes a reminder system to ensure that all patients receive reminder letters, and/or direct phone calls for appointments. This includes reminders for routine scr eening mammograms, diagnostic mammograms, or other Breast Imaging Interventions when appropriate. Th is patient will be placed in the appropriate reminder system. TECHNICAL DOCUMENTATION: FINDING NUMBER: (1) ASSESSMENT: (1) JOB ID: [id number] 2010 [employer]- All Rights Reserved Reading location - IP/workstation name: [email or web address]
== END ==
LOC: WI 08:10
PROVIDERS: ATTEND Internal Medicine
DX: N64.89 Other specified disorders of breast (principal)
CPT/HCPCS: 76642; 77065